=== PATIENT | male | born 1980 | race Caucasian/White ===

== ENCOUNTER 2019-02-07 12:47 | Emergency (ER) | payer BC, OTHER ==
[2019-02-07] MEDS ORDERED: ONDANSETRON HCL INJ/PF 4 MG/2 ML SDV IV ONE (13:37)
[2019-02-07] MEDS ORDERED: MORPHINE SULFATE 10 MG/ML INJ IV ONE (13:37)
--- NOTE | 2019-02-07 13:38 | ER Document Report ---
ED Medical Screen (RME) - General Chief Complaint: Nausea/Vomiting Stated Complaint: NAUSEA/VOMITING Time Seen by Provider: 02/07/19 13:36 Primary Care Provider: ILA SANDOVAL [Primary Care Provider] - Follow up as needed Mode of Arrival: Ambulatory Information source: Patient Notes: Patient presents complaining of right flank pain with right lower quadrant tenderness that started yesterday. Patient had numerous episodes of nausea and vomiting. states that patient has been getting clammy at times with his symptoms. I have greeted and performed a rapid initial assessment of this patient. A comprehensive ED assessment and evaluation of the patient, analysis of test results and completion of the medical decision making process will be conducted by additional ED providers. TRAVEL OUTSIDE OF THE [place] IN LAST 30 DAYS: No - Related Data Allergies/Adverse Reactions: No Known Allergies Allergy (Unverified 02/07/19 12:54) Physical Exam - Vital signs Vitals: Temp Pulse Resp BP Pulse Ox 97.7 F 56 L 16 154/102 H 97 02/07/19 13:02 02/07/19 13:02 02/07/19 13:02 02/07/19 13:02 02/07/19 13:02 - Back Back: CVA tenderness - Right Course - Vital Signs Vital signs: Temp Pulse Resp BP Pulse Ox 97.7 F 56 L 16 154/102 H 97 02/07/19 13:02 02/07/19 13:02 02/07/19 13:02 02/07/19 13:02 02/07/19 13:02 Doctor's Discharge - Discharge Referrals: ILA SANDOVAL [Primary Care Provider] - Follow up as needed
--- NOTE | 2019-02-07 14:17 | RADIOLOGY REPORT (SQ) ---
EXAM DESCRIPTION: CT ABD/PELVIS NO ORAL OR IV COMPLETED DATE/TIME: 02/07/2019 1:55 pm REASON FOR STUDY: R flank pain, RLQ pain COMPARISON: None. TECHNIQUE: CT scan of the abdomen and pelvis performed without intravenous or oral contrast. Images reviewed with lung, soft tissue, and bone windows. Reconstructed coronal and sagittal MPR images revi ewed. All images stored on PACS. All CT scanners at this facility use dose modulation, iterative reconstruction, and/or weight based d osing when appropriate to reduce radiation dose to as low as reasonably achievable (ALARA). [facility]: Dose Right [facility]: CareDose [facility]: Dose Right [facility]: Teradose 4D [facility]: Smart [employer] RADIATION DOSE: CT Rad equipment meets quality standard of care and radiation dose reduction techniq ues were employed. CTDIvol: 19.2 mGy. DLP: 1111 mGy-cm.mGy. LIMITATIONS: None. FINDINGS: LOWER CHEST: No significant findings. No nodules or infiltrates. NON-CONTRASTED LIVER, SPLEEN, ADRENALS: Evaluation limited by lack of IV contrast. Hepatic steatosis . No identified significant masses. PANCREAS: No masses. No peripancreatic inflammatory changes. GALLBLADDER: No identified stones by CT criteria. No inflammatory changes to suggest cholecystitis. RIGHT KIDNEY AND URETER: No suspicious masses. Assessment limited by lack of IV contrast. No signif icant calcifications. Minimal right hydroureter. LEFT KIDNEY AND URETER: No suspicious masses. Assessment limited by lack of IV contrast. No signifi cant calcifications. No hydronephrosis or hydroureter. AORTA AND RETROPERITONEUM: No aneurysm. No retroperitoneal masses or adenopathy. BOWEL AND PERITONEAL CAVITY: No obvious masses or inflammatory changes. No free fluid. APPENDIX: Normal. PELVIS, BLADDER, AND ABDOMINAL WALL:No abnormal masses. No free fluid. 2 adjacent feet punctate 1 mm hyperattenuating foci within the urinary bladder, 1 adjacent to the right ureterovesicular junction (series 3, images 35 and 37). Small fat containing umbilical hernia. BONES: Lumbarization of S1 with bilateral simulation joints. OTHER: No other significant finding. IMPRESSION: 1. Minimal right hydroureter with two adjacent 1 mm stones within the dependent urinary bladder, 1 of which is adjacent to the right ureterovesicular junction. 2. Hepatic steatosis. COMMENT: Quality ID # [id number]: Final reports with documentation of one or more dose reduction techniques (e.g., Automated exposure control, adjustment of the mA and/or kV according to patient size, use of iterative reconstruction technique) TECHNICAL DOCUMENTATION: JOB ID: [id number] [employer]- All Rights Reserved Reading location - IP/workstation name: [email or web address]
[2019-02-07 14:54] LABS: ABSOLUTE BASOPHILS # (AUTO) 0.1 10^3/uL (0.0-0.2); ABSOLUTE MONOCYTES (AUTO) 0.5 10^3/uL (0.1-1.4); ABSOLUTE NEUT (AUTO) 12.6 10^3/uL (1.7-8.2); BASOPHILS % (AUTO) 0.4 % (0-2); EOSINOPHILS % (AUTO) 0.1 % (0-6); HEMATOCRIT 47.5 % (37.9-51.0); HEMOGLOBIN 16.2 g/dL (13.5-17.0); LYMPHOCYTES % (AUTO) 7.1 % (13-45); MEAN CORPUSCULAR HEMOGLOBIN 30.1 pg (27.0-33.4); MEAN CORPUSCULAR HGB CONC 34.2 g/dL (32.0-36.0); MEAN CORPUSCULAR VOLUME 88 fl (80-97); MONOCYTES % (AUTO) 3.8 % (3-13); PLATELET COUNT 327 10^3/uL (150-450); RED BLOOD COUNT 5.39 10^6/uL (4.35-5.55); RED CELL DISTRIBUTION WIDTH 13.6 % (11.5-14.0); SEGMENTED NEUTROPHILS % (AUTO) 88.6 % (42-78); TOTAL CELLS COUNTED % (AUTO) 100 %; WHITE BLOOD COUNT 14.2 10^3/uL (4.0-10.5)
[2019-02-07 15:09] LABS: ALANINE AMINOTRANSFERASE 159 U/L (21-72); ALKALINE PHOSPHATASE 88 U/L (38-126); ANION GAP 15 (5-19); ASPARTATE AMINO TRANSFERASE 64 U/L (17-59); BILIRUBIN,DIRECT 0.3 mg/dL (0.0-0.4); BILIRUBIN,TOTAL 0.8 mg/dL (0.2-1.3); BLOOD UREA NITROGEN 12 mg/dL (7-20); CALCIUM 10.7 mg/dL (8.4-10.2); CARBON DIOXIDE 24 mmol/L (22-30); CHLORIDE 105 mmol/L (98-107); GLUCOSE 152 mg/dL (75-110); LIPASE 60.8 U/L (23-300); POTASSIUM 4.6 mmol/L (3.6-5.0); SODIUM 144.1 mmol/L (137-145); TOTAL PROTEIN 8.4 g/dL (6.3-8.2)
[2019-02-07 15:14] LABS: AMORPHOUS SEDIMENT,URINE 1+ /HPF; APPEARANCE,URINE TURBID; BILIRUBIN,URINE NEGATIVE (NEGATIVE); COLOR,URINE YELLOW; GLUCOSE, URINE NEGATIVE (NEGATIVE); KETONES,URINE 20 mg/dL (NEGATIVE); LEUKOCYTE ESTERASE,URINE NEGATIVE (NEGATIVE); NITRITE,URINE NEGATIVE (NEGATIVE); PROTEIN,URINE 100 mg/dL (NEGATIVE); URINE SPECIFIC GRAVITY 1.025; UROBILINOGEN,URINE NEGATIVE mg/dL (<2.0)
--- NOTE | 2019-02-07 15:21 | ER Document Report ---
ED General - General Chief Complaint: Nausea/Vomiting Stated Complaint: NAUSEA/VOMITING Time Seen by Provider: 02/07/19 13:36 Primary Care Provider: OBI KELLER [Provider Group] - 02/09/19 Mode of Arrival: Ambulatory Notes: Patient is a 38-year-old male who presents the emergency department with a chief complaint of vomiting and right lower abdominal pain. He states that he has traces of blood in his vomitus. He is urinating well. States the pain in his right flank area and it radiates to the right lower quadrant. Nothing makes the pain better or worse. The pain comes and goes. He received Zofran and morphine in triage, but states that he is still in pain. He has history of kidney stones. No other past medical history. He does not take any medications. His last kidney stone was 10 years ago. TRAVEL OUTSIDE OF THE [place] IN LAST 30 DAYS: No - Related Data Allergies/Adverse Reactions: No Known Allergies Allergy (Unverified 02/07/19 12:54) Past Medical History - General Information source: Patient - Social History Smoking Status: Current Every Day Smoker Frequency of alcohol use: None Drug Abuse: None Family History: Other - Renal calculi Patient has suicidal ideation: No Patient has homicidal ideation: No Renal/ Medical History: Denies: Hx Peritoneal Dialysis Review of Systems - Review of Systems Notes: REVIEW OF SYSTEMS: CONSTITUTIONAL : Denies recent illness. Denies recent unintentional weight loss. Denies fever, chills, or sweats. EENT: Denies eye, ear, throat, or mouth pain, discharge, or symptoms. Denies nasal or sinus congestion. CARDIOVASCULAR: Denies chest pain. RESPIRATORY: Denies shortness of breath, cough, congestion, difficulty breathing, or wheezing. GASTROINTESTINAL: See HPI GENITOURINARY: Denies difficulty urinating, burning, blood in urine, urgency or frequency. MUSCULOSKELETAL: See HPI SKIN: Denies rash, itchiness, or lesions HEMATOLOGIC : Denies easy bruising or bleeding. LYMPHATIC: Denies swollen, painful, enlarged glands. NEUROLOGICAL: Denies no numbness or tingling denies weakness. Denies headache. Denies altered mental status. Denies alteration in speech. PSYCHIATRIC: Denies stress, anxiety, alteration in sleep patterns, or depression. All other systems reviewed and negative. Physical Exam - Vital signs Vitals: Temp Pulse Resp BP Pulse Ox 97.7 F 56 L 16 154/102 H 97 02/07/19 13:02 02/07/19 13:02 02/07/19 13:02 02/07/19 13:02 02/07/19 13:02 - Notes Notes: PHYSICAL EXAMINATION: GENERAL: Appears well, obese, well-nourished, no acute distress. HEAD: Normocephalic, atraumatic. EYES: PERRL, conjunctiva normal, all extraocular movements intact, sclera non icteric ENT: Moist mucous membranes. NECK: Supple, no noticeable swelling, redness, rash. Normal range of motion. LUNGS: Equal breath sounds bilaterally and clear to auscultation. No wheezes ra les or rhonchi. CARDIOVASCULAR: S1-S2, regular rate, regular rhythm. Radial pulses 2+, normal. ABDOMEN: Normoactive bowel sounds. Soft, nontender, no guarding, no rebound tenderness, and no masses palpated. EXTREMITIES: Normal strength and range of motion, no pitting or edema. No cyanosis. NEUROLOGICAL: Moves all extremities upon command. Strength 5/5 in all extremities. PSYCH: Normal mood, normal affect. SKIN: Warm, dry. No rash, lesions, ulcerations noted. Normal skin turgor. BACK: Tenderness noted to right lower back and area of kidney stones noted on CT scan. Course - Re-evaluation Re-evalutation: 02/07/19 15:54 Patient does have two 1 mm stones that are adjacent to each other on his right side in the area which he has pain. He is complaining of more pain and he will receive a dose of Toradol. There is a leukocytosis of 14,000, but I suspect this is due to him having stones. His LFTs are elevated. He will follow-up with his primary care provider in regards to this. I do not suspect patient has any life-threatening etiology at this time. No appendicitis noted on patient's CT scan. 02/07/19 16:50 Patient states that his pain is much better after receiving the dose of Toradol and receiving fluids. He is able to urinate. He is being sent home with Flomax and Toradol. He will follow-up with the urologist and primary care provider. I do not suspect an infected kidney stone, as the patient does not have any leukocytes in his urine. Verbal discharge instructions were given to the tia ent. They verbalized understanding. They are stable for discharge. - Vital Signs Vital signs: Temp Pulse Resp BP Pulse Ox 98.2 F 77 18 167/90 H 98 02/07/19 16:24 02/07/19 16:24 02/07/19 16:24 02/07/19 16:24 02/07/19 16:24 - Laboratory Result Diagrams: 02/07/19 14:40 02/07/19 14:40 Laboratory results interpreted by me: 02/07/19 02/07/19 02/07/19 14:40 14:40 14:40 WBC 14.2 H Seg Neutrophils % 88.6 H Lymphocytes % 7.1 L Absolute Neutrophils 12.6 H Glucose 152 H Calcium 10.7 H AST 64 H ALT 159 H Total Protein 8.4 H Urine Protein 100 H Urine Ketones 20 H Urine Blood MODERATE H Discharge - Discharge Clinical Impression: Renal calculi, Hydroureter Condition: Stable Disposition: HOME, SELF-CARE Additional Instructions: You were seen today in the emergency department for vomiting and right lower abdominal/back pain. You do have 2 small kidney stones in the area that have pain in your back. You are being prescribed Flomax. Please take your medication as prescribed. You are also being prescribed Toradol, a pain medication that will help you while you pass your stones. You are being sent home with Zofran, and medication to help with nausea and vomiting. You can take 1 tablet every 4-6 hours as needed. Please follow-up with the urologist on Saturday. Make sure you get plenty of rest. If you develop a fever, have worsening symptoms, or have any symptoms that are worrisome to you, please return to the emergency department. Prescriptions: Ketorolac Tromethamine [Toradol 10 mg Tablet] 10 mg PO Q6HP PRN #20 tablet PRN Reason: Tamsulosin HCl [Flomax 0.4 mg Cap.sr] 0.4 mg PO DAILY #7 cap.sr.24h Forms: Return to Work Referrals: [facility] [Provider Group] - 02/09/19
[2019-02-07] MEDS ORDERED: KETOROLAC TROMETHAMINE INJ/PF 30 MG/1 ML SDV IV ONE (15:30)
[2019-02-07] MEDS ORDERED: NORMAL SALINE 1000 ML 1,000 ML IV ONE (15:39)
[2019-02-07] MEDS ORDERED: TAMSULOSIN HCL 0.4 MG CAP.SR.24H PO ONE (15:39)
[2019-02-07] MEDS ORDERED: ONDANSETRON ODT 4 MG TAB (6 TAB/ER DISP) PO PRN (15:40)
[2019-02-07 16:28] VITALS: BP 167/90
== END 2019-02-07 17:01 | disposition home or self-care (01) ==
LOC: EDBD → ER 12:47
DX: N20.0 Calculus of kidney (principal); N13.4 Hydroureter; R11.2 Nausea with vomiting, unspecified; R10.31 Right lower quadrant pain; F17.200 Nicotine dependence, unspecified, uncomplicated
CPT/HCPCS: 99284; 96361; 96374; 96375; 36415; 83690; 85025; 80053; 81001; 74176; J1885; J2270; J2405; J7030